=== PATIENT | female | born 1965 | race Caucasian/White ===

== ENCOUNTER 2016-05-27 19:21 | Emergency (ER) | payer OTHER ==
[~2016-05-27] VITALS: Ht 167.6 cm; Wt 72.6 kg
[2016-05-27 19:21] VITALS: BP 133/84
--- NOTE | 2016-05-27 19:33 | ED.ADGEN ---
Adult General Chief Complaint Chief Complaint " I was carrying a chest..drawers.. down step.. just missed the last step.. and rolled this ankle... (Rt) HPI HPI Patient is a 50 year old female who presents with above hx and complaints injury to Rt. ankle. She neurovascular intact. Obvious swelling and some ligament instability at lateral malleolus. Some pain on foot squeeze. No upper leg tenderness. No other injuries reported. Patient normally follows at [facility]. Review of Systems Review of Systems Constitutional: Denies fever or chills [] Eyes: Denies change in visual acuity, redness, or eye pain [] HENT: Denies nasal congestion or sore throat [] Respiratory: Denies cough or shortness of breath [] Cardiovascular: No additional information not addressed in HPI [] GI: Denies abdominal pain, nausea, vomiting, bloody stools or diarrhea [] : Denies dysuria or hematuria [] Musculoskeletal: Complains of right ankle pain Integument: Denies rash or skin lesions [] Neurologic: Denies headache, focal weakness or sensory changes [] Endocrine: Denies polyuria or polydipsia [] Family History Family History Noncontributory Current Medications Current Medications Current Medications Medications (Trade) Dose Ordered Sig/Wesly Start Time Stop Time Status Last Admin Dose Admin Hydrocodone Bitartrate/ Ibuprofen (Vicoprofen 7.5-200) 1 tab STK-MED ONCE 05/27/16 20:02 05/27/16 20:03 DC Allergies Allergies Allergies Coded Allergies Type Severity Reaction Last Updated Verified Penicillins Allergy Intermediate 05/27/16 Yes Sulfa (Sulfonamide Antibiotics) Allergy Intermediate 05/27/16 Yes prednisone Allergy Intermediate 05/27/16 Yes Physical Exam Physical Exam Constitutional: Well developed, well nourished, in acute distress, non-toxic appearance. [] HENT: Normocephalic, atraumatic, bilateral external ears normal, oropharynx moist, no oral exudates, nose normal. [] Eyes: PERRLA, EOMI, conjunctiva normal, no discharge. [] Neck: Normal range of motion, no tenderness, supple, no stridor. [] Cardiovascular:Heart rate regular rhythm, no murmur [] Lungs & Thorax: Bilateral breath sounds clear to auscultation [] Abdomen: Bowel sounds normal, soft, no tenderness, no masses, no pulsatile masses. [] Skin: Warm, dry, no erythema, no rash. [] Back: No tenderness, no CVA tenderness. [] Extremities: Right ankle tenderness, no cyanosis, no clubbing, ROM intact, right ankle edema. [] Bilateral knee abrasions and contusions. Neurologic: Alert and oriented X 3, normal motor function, normal sensory function, no focal deficits noted. [] Psychologic: Affect normal, judgement normal, mood normal. [] Current Patient Data Vital Signs Vital Signs Date Time Temp Pulse Resp B/P Pulse Ox O2 Delivery O2 Flow Rate FiO2 05/27/16 19:21 98.1 95 20 97 Room Air EKG EKG [] Radiology/Procedures Radiology/Procedures My interpretation of foot and right ankle shows obvious edema. But no obvious displaced fracture or dislocation. [] Course & Med Decision Making Course & Med Decision Making Pertinent Labs and Imaging studies reviewed. (See chart for details). Distal neurovascular intact after application of splint. Ice, elevation, rest, splint, crutches, and take [id number] Tylenol and ibuprofen as needed for pain. May take Vicoprofen up 4 times day for marked pain. Follow-up primary care. Return if any concerns. [] Final Impression Final Impression 1. Ankle and Foot sprian Rt.[] Problems: Dragon Disclaimer Dragon Disclaimer This electronic medical record was generated, in whole or in part, using a voice recognition dictation system. FATIMAH ARRIAZA MD May 27, 2016 19:32
[2016-05-27] MEDS ORDERED: HYDROCODON/IBUPROFEN 7.5/200MG TABLET. PO ONE (19:45)
[2016-05-27] MEDS ORDERED: HYDROCODON/IBUPROFEN 7.5/200MG TABLET. ONE (20:02)
[2016-05-27] MEDS ORDERED: HYDR-79 PO (20:57)
--- NOTE | 2016-05-28 08:56 | RAD ---
Right ankle, 3 views, 05/27/2016: History: Fall, injury, pain No fracture or dislocation is identified. There is mild soft tissue swelling over the lateral malleolus. IMPRESSION: No acute bony abnormality is detected. Right foot, 3 views, 05/27/2016: A dense sclerotic foci in the distal aspect of the distal phalanx of the great toe is probably a bone island. No acute fracture or dislocation is identified. There is mild diffuse soft tissue swelling.
== END 2016-05-27 21:20 | disposition home or self-care (01) ==
LOC: ER 19:24
DX: S93.401A Sprain of unspecified ligament of right ankle, initial encounter (principal); S93.601A Unspecified sprain of right foot, initial encounter; W10.8XXA Fall (on) (from) other stairs and steps, initial encounter; Y93.89 Activity, other specified; Y92.89 Other specified places as the place of occurrence of the external cause; Y99.8 Other external cause status; Z88.0 Allergy status to penicillin; Z88.2 Allergy status to sulfonamides; Z88.8 Allergy status to other drugs, medicaments and biological substances
CPT/HCPCS: 29515; 73610; 73630; 99284-25